=== PATIENT | male | born 1965 | race Caucasian/White ===

== ENCOUNTER 2021-03-09 16:33 | Emergency (ER) | payer OTHER, SELFPAY ==
--- NOTE | ~2021-03-09 | XR_ITS ---
EXAMINATION: XR shoulder RT min 2V EXAM DATE: 03/09/2021 17:04 INDICATION: Pulling Injury W/Tearing Pain, dorsal Pain With Abduction. TECHNIQUE: The following right shoulder projections obtained: frontal projection with internal rotati on, frontal projection with external rotation, Grashey, and scapular Y view (4+ views). There is no prior study for comparison. FINDINGS: No evidence of right shoulder rotator cuff calcific tendinosis. There is minimal glenohume ral joint, moderate acromioclavicular joint primary osteoarthritis. There are no acute fractures or d islocations identified. There is no subcutaneous gas. The soft tissue is unremarkable. There are no radiopaque foreign bodies. IMPRESSION: 1. Right shoulder exam without acute osseous findings. 2. Moderate acromioclavicular osteoarthritis. Reviewed, dictated and finalized at location A. R ASSEMBLER
[2021-03-09 16:44] VITALS: BP 146/85; PULSE 85; RESP 16; TEMP 36.9; O2SAT 97
--- NOTE | 2021-03-09 17:17 | ED.UPPEXIN ---
HPI - Extremity Injury (Upper) General Chief Complaint: Extremity Injury, Upper Stated Complaint: right shoulder pain Source: patient and RN notes reviewed Mode of arrival: ambulatory History of Present Illness HPI narrative: This is a 55-year-old male who presented to urgent care with complaints of right shoulder pain after l picking up concrete. According to patient he fell what he describes as a tear to his right shoulder as he was picking up the stone. He also notes that he has numbness to his fingers and hand. The patient denies SOB, CP, palpitation, extremity numbness, neurovascular deficiencies, pedal pulses present, range of motion's with tenderness, pulses palpable lightheadedness, dizziness, constipation, diarrhea, chills, or fever. MD complaint: injury to: shoulder (right) Related Data Home Medications Medication Instructions Recorded Confirmed apixaban [Eliquis] 5 mg PO BID 03/09/21 03/09/21 atorvastatin 40 mg PO DAILY 03/09/21 03/09/21 celecoxib [Celebrex] 100 mg PO BID 03/09/21 03/09/21 lisinopril 10 mg PO DAILY 03/09/21 03/09/21 metformin 1,000 mg PO BID 03/09/21 03/09/21 metoprolol succinate 50 mg PO DAILY 03/09/21 03/09/21 sitagliptin [Januvia] 100 mg PO DAILY 03/09/21 03/09/21 Allergies Allergy/AdvReac Type Severity Reaction Status Date / Time No Known Allergies Allergy Verified 03/09/21 16:59 Review of Systems Review of Systems: A 14 organ system Review of Systems was performed and pertinent positives included in the HPI, otherwise remaining ROS is negative. [facility] Family History Family History (Updated 03/09/21 @ 17:20 by PRINCESS Willis) Other Family history non-contributory Exam Narrative: GENERAL: This is a well-nourished, well-developed patient, in no apparent distress. HEAD: normocephalic, atraumatic. EYES: PERRL. Sclera clear/white. Vision is grossly intact. EARS: External ears normal, auditory canals clear and without drainage, TMs normal without perforation. Hearing grossly intact. NOSE: External nose normal with no obvious nasal discharge, nares without redness, no rhinorrhea. THROAT: Mucous membranes moist, posterior pharynx clear. NECK: Neck supple, non-tender without lymphadenopathy, masses or thyromegaly. CARDIOVASCULAR: Regular rate and rhythm without murmurs, gallops, or rubs. RESPIRATORY: Clear to auscultation. Breath sounds equal bilaterally. No wheezes, rales, or rhonchi. GASTROINTESTINAL: Abdomen soft, non-tender, nondistended. Bowel sounds are active. No hepato-splenomegaly, or palpable masses. No guarding. SKIN: warm, intact with no suspicious lesions or rash, good texture and turgor. NEURO: awake, alert, and oriented to person, place and time. There were no obvious focal neurologic abnormalities. Steady gait EXTREMITIES: Limited range of motion right arm. Unable to left arm above the nipple line right shoulder tenderness no edema. No calf tenderness. Negative Homans sign bilaterally. No neurovascular deficiency noted, pedal pulses present to the affected arm, capillary refill within normal limits. BACK: Nontender without deformity or crepitance. No flank tenderness. Course Course Emergency Course: Patient will be treated for strain or sprain of the right shoulder he was instructed to follow-up with his primary care physician if the situation does not improve for further testing such as a CT. Vital Signs Vital signs: Vital Signs Temperature 98.5 F 03/09/21 16:44 Pulse Rate 85 03/09/21 16:44 Respiratory Rate 16 03/09/21 16:44 Blood Pressure 146/85 H 03/09/21 16:44 Pulse Oximetry 97 03/09/21 16:44 Temperature 98.5 F 03/09/21 16:44 Pulse Rate 85 03/09/21 16:44 Respiratory Rate 16 03/09/21 16:44 Blood Pressure 146/85 H 03/09/21 16:44 Pulse Oximetry 97 03/09/21 16:44 MDM - Extremity Injury (Upper) Differential Diagnosis Differential diagnosis: Likely dislocation of shoulder, fracture of clavicle and other (Strain or sprain
== END 2021-03-09 17:31 | disposition home or self-care (01) ==
PROVIDERS: Emergency Provider Nurse Practitioner; PCP Family Medicine
DX: M25.511 Pain in right shoulder (principal); S46.911A Strain of unspecified muscle, fascia and tendon at shoulder and upper arm level, right arm, initial encounter; X50.0XXA Overexertion from strenuous movement or load, initial encounter
CPT/HCPCS: 73030; 99213; A4565; G0463

== ENCOUNTER 2024-03-30 15:40 | Emergency (ER) | payer OTHER, SELFPAY ==
--- NOTE | ~2024-03-30 | XR_ITS ---
XR chest 2V Ordering provider: AB Fowler History: 58 years Male with . cough . Comparison: None. FINDINGS: MEDIASTINUM: The cardiac silhouette is not enlarged. LUNGS: No infiltrates, effusions or pneumothorax. OTHER: No free air under the diaphragm. Degenerative changes of the spine. chronic loss of volume is seen in multiple vertebrae in the midthoracic area. IMPRESSION: No acute cardiopulmonary pathology. Reviewed, dictated and finalized at location A. [employer] SPECIALIST
[2024-03-30 15:45] VITALS: BP 119/71; PULSE 91; RESP 16; TEMP 36.7; O2SAT 99
--- NOTE | 2024-03-30 16:47 | ED.GENADULT ---
HPI - General Adult General Chief complaint: Upper Respiratory Infection Stated complaint: cold symptoms Source: patient Mode of arrival: ambulatory Limitations: no limitations History of Present Illness HPI narrative: Patient presents for evaluation of sick symptoms for last week. His primary symptom of concern is a cough. He has tried several ryjl-zay-hiifwgo medications including Delsym, Mucinex DM, Sudafed and NyQuil. NyQuil as only medication that seemed to allow him to rest. He denies any sore throat, otalgia, chills, nausea, or vomiting. He has experienced diarrhea. He was recently out of town in large crowds so is unsure whether he may have been exposed to any sick contacts. He does not smoke. Related Data Home Medications Medication Instructions Recorded Confirmed apixaban 5 mg tablet (Eliquis) 5 mg PO BID 03/09/21 03/09/21 atorvastatin 40 mg tablet 40 mg PO DAILY 03/09/21 03/09/21 celecoxib 100 mg capsule (Celebrex) 100 mg PO BID 03/09/21 03/09/21 lisinopril 10 mg tablet 10 mg PO DAILY 03/09/21 03/09/21 metformin 1,000 mg tablet 1,000 mg PO BID 03/09/21 03/09/21 metoprolol succinate 50 mg 50 mg PO DAILY 03/09/21 03/09/21 tablet,extended release 24 hr sitagliptin phosphate 100 mg 100 mg PO DAILY 03/09/21 03/09/21 tablet (Januvia) amlodipine 10 mg tablet mg 03/30/24 clopidogrel 75 mg tablet mg 03/30/24 glipizide 5 mg tablet mg 03/30/24 tamsulosin 0.4 mg capsule mg PO 03/30/24 Allergies Allergy/AdvReac Type Severity Reaction Status Date / Time No Known Allergies Allergy Verified 03/09/21 16:59 Review of Systems Review of Systems: CONSTITUTIONAL: Denies fever, chills, or sweats. EYES: Denies visual changes, redness, or discharge. ENT: Denies rhinorrhea, congestion, sore throat, or otalgia. CARDIOVASCULAR: Denies chest pain, palpitations, or edema. RESPIRATORY: Reports cough. Denies shortness of breath. GASTROINTESTINAL: Reports diarrhea. Denies abdominal pain, nausea, or vomiting GENITOURINARY: Denies dysuria or hematuria. SKIN: Denies rash or itching. MUSCULOSKELETAL: Denies back pain, joint pain, or myalgia. NEUROLOGIC: Denies headache, numbness, dizziness, or weakness. PSYCHIATRIC: Denies anxiety or depression. PMFSH Past Medical History Medical History Coronary artery disease Hypertension Surgical History Surgical History No pertinent past surgical history Family History Family History Other Family history non-contributory Social History Social History Gender identity (if verbalized by the patient): Male Spiritual care concerns: No Exam Narrative: GENERAL: Well-appearing, well-nourished, and in no acute distress. HEAD: Normocephalic, atraumatic. EYES: PERRLA and EOMI. ENT: Nares clear, no rhinorrhea or epistaxis. Mucous membranes moist. Oropharynx without tonsillar hypertrophy exudate or other lesions. Bilateral TMs pearly weems nonbulging NECK: Supple. No adenopathy or masses. No carotid bruits or JVD CHEST: Clear to auscultation. No respiratory distress. No wheezes rales or rhonchi HEART: Regular rate and rhythm. No murmur heard. Normal peripheral pulses. ABDOMEN: Soft, nontender, nondistended, normal active bowel sounds. EXTREMITIES: Normal range of motion. No edema. SKIN: Warm, dry, no rash. NEURO: No focal deficits. Alert and oriented x3. PSYCH: Normal mood and affect. Course Course Emergency Course: This is a 58-year-old male who presented for evaluation a cough. Influenza and COVID were negative. Chest x-ray with no acute cardiopulmonary disease. Exam is consistent with viral URI. Will discharge with albuterol and Tessalon. He has no wheezing necessitating steroid use. Increase hydration. OTC agents for symptom management. Follow up with primary provider. Go to the ER for worsening symptoms. Pt in agreement with plan of care. Level of Care: Express Care Visit Vital Signs Vital signs: Vital Signs Temperature 36.7 C 03/30/24 15:45 Pulse Rate 91 03/30/24 15:45 Respiratory Rate 16 03/30/24 15:45 Blood Pressure 119/71 03/30/24 15:45 Pulse Oximetry 99 03/30/24 15:45 Oxygen Delivery Room Air 03/30/24 15:45 Temperature 36.7 C 03/30/24 15:45 Pulse Rate 91 03/30/24 15:45 Respiratory Rate 16 03/30/24 15:45 Blood Pressure 119/71 03/30/24 15:45 Pulse Oximetry 99 03/30/24 15:45 Oxygen Delivery Room Air 03/30/24 15:45 Medical Decision Making Vital Signs Vital Signs: Vital Signs Temperature 36.7 C 03/30/24 15:45 Pulse Rate 91 03/30/24 15:45 Respiratory Rate 16 03/30/24 15:45 Blood Pressure 119/71 03/30/24 15:45 Pulse Oximetry 99 03/30/24 15:45 Oxygen Delivery Room Air 03/30/24 15:45 Temperature 36.7 C 03/30/24 15:45 Pulse Rate 91 03/30/24 15:45 Respiratory Rate 16 03/30/24 15:45 Blood Pressure 119/71 03/30/24 15:45 Pulse Oximetry 99 03/30/24 15:45 Oxygen Delivery Room Air 03/30/24 15:45 Lab Data Labs: Lab Results 03/30/24 Range/Units 16:53 POC Influenza A Ag Negative (Negative) POC Influenza B Ag Negative (Negative) POC SARS CoV-2 Ag Negative (Negative) Imaging Data Radiologist's impression: XR chest 2V Ordering provider: AB Fowler History: 58 years Male with . cough . Comparison: None. FINDINGS: MEDIASTINUM: The cardiac silhouette is not enlarged. LUNGS: No infiltrates, effusions or pneumothorax. OTHER: No free air under the diaphragm. Degenerative changes of the spine. chronic loss of volume is seen in multiple vertebrae in the midthoracic area. IMPRESSION: No acute cardiopulmonary pathology. Discharge Plan Discharge Clinical Impression: Upper respiratory infection, viral Patient Disposition: Home, Self-Care Condition: Stable Instructions: Antibiotic Form, Upper Respiratory Infection (DC), Viral Syndrome (ED) Patient Language: Luxembourgish Prescriptions: New benzonatate 200 mg capsule 200 mg PO TID PRN (Reason: cough) Qty: 30 0RF albuterol sulfate 90 mcg/actuation HFA aerosol inhaler 2 puff inhalation QID PRN (Reason: shortness of breath or wheezing) Qty: 8.5 0RF No Action atorvastatin 40 mg Tablet 40 mg PO DAILY metoprolol succinate 50 mg Tablet Extended Release 24 Hr 50 mg PO DAILY metformin 1,000 mg Tablet 1,000 mg PO BID lisinopril 10 mg Tablet 10 mg PO DAILY celecoxib [Celebrex] 100 mg Capsule 100 mg PO BID Januvia 100 mg Tablet 100 mg PO DAILY Eliquis 5 mg Tablet 5 mg PO BID cyclobenzaprine 10 mg tablet 10 mg PO TID PRN (Reason: muscle spasm) Qty: 30 0RF hydrocodone-acetaminophen 10-325 mg tablet 1 tablet PO Q6H PRN (Reason: pain) Qty: 15 0RF clopidogrel 75 mg tablet tamsulosin 0.4 mg capsule PO amlodipine 10 mg tablet glipizide 5 mg tablet Follow-up/Referrals: Garfield,Bebo Branch MD [Primary Care Provider] - Time of Disposition: 17:35
[2024-03-30 17:10] LABS: EDCOVIDSCREEN Negative (Negative)
[2024-03-30 17:12] LABS: EDINFLUASCREEN Negative (Negative); EDINFLUBSCREEN Negative (Negative)
== END 2024-03-30 17:50 | disposition home or self-care (01) ==
PROVIDERS: Emergency Provider Nurse Practitioner; PCP Family Medicine
DX: J06.9 Acute upper respiratory infection, unspecified (principal); Z20.822 Contact with and (suspected) exposure to COVID-19; I25.10 Atherosclerotic heart disease of native coronary artery without angina pectoris; I10 Essential (primary) hypertension; Z79.01 Long term (current) use of anticoagulants
CPT/HCPCS: 71046; 87426; 87804; 99213; G0463